=== PATIENT | male | born 1960 | race Caucasian/White ===

== ENCOUNTER → 2019-09-30 08:27 | Outpatient (BNVA) | payer MEDICARE, SELFPAY | PROVIDERS: Family Provider Nurse Practitioner Family; PCP Nurse Practitioner Family; Visit Provider Psychiatry & Neurology Psychiatry | DX: F33.42 Major depressive disorder, recurrent, in full remission (principal); F41.1 Generalized anxiety disorder; F17.210 Nicotine dependence, cigarettes, uncomplicated | CPT/HCPCS: 99213 ==

== ENCOUNTER → 2020-01-21 07:38 | Outpatient (BNVA) | payer MEDICARE, SELFPAY | PROVIDERS: Family Provider Nurse Practitioner Family; PCP Nurse Practitioner Family; Visit Provider Psychiatry & Neurology Psychiatry | DX: F33.42 Major depressive disorder, recurrent, in full remission (principal); F41.1 Generalized anxiety disorder; F17.210 Nicotine dependence, cigarettes, uncomplicated; F90.2 Attention-deficit hyperactivity disorder, combined type | CPT/HCPCS: 99214 ==

== ENCOUNTER → 2020-07-05 07:27 | Outpatient (BNVA) | payer MEDICARE, SELFPAY | PROVIDERS: Family Provider Nurse Practitioner Family; PCP Nurse Practitioner Family; Visit Provider Psychiatry & Neurology Psychiatry | DX: F33.42 Major depressive disorder, recurrent, in full remission (principal); F41.1 Generalized anxiety disorder; F17.210 Nicotine dependence, cigarettes, uncomplicated | CPT/HCPCS: 99214 ==

== ENCOUNTER 2020-07-18 13:44 | Outpatient (CLI) | payer MEDICARE, SELFPAY ==
--- NOTE | 2020-07-18 14:00 | CT_ITS ---
WS: [id number] CT ANGIOGRAPHY abdomen and pelvis, with and without contrast. HISTORY: I71.4 - Abdominal aortic aneurysm, without rupture TECHNIQUE: Noncontrast exam first performed. CT angiogram is performed during IV injection. Reformati on images reviewed. All CT scans at [facility] use at least one of these dose optimization techniques: automated exposure control; mA and/or kV adjustment per patient size (includes targeted exams where dose is matched to clinical indication); or iterative reconstruction. CONTRAST: Omnipaque 350; 95 mL IV. DLP: 2575.95 mGycm COMPARISON: 06/07/2019 Minimal scarring or chronic atelectasis at the RIGHT lung base with no interval change. Normal size h eart. Small hiatal hernia. Abdominal aorta: Patient is status post endovascular graft repair of a large abdominal aortic aneurys m. Graft extends into the iliac arteries bilaterally. Maximum diameter of the [place] aneurysm is 5.1 cm. Central lumen of the endovascular graft is patent. There is calcification and increased density w ithin the extra graft thrombus but there is no endovascular leak. Similar findings were seen on the p recontrast examination. Iliac arteries are both patent. There is moderate amount of calcification wit hin the iliac arteries. Calcified plaque at the origins of the SMA and celiac axis. No stenosis. Accessory renal artery on th e RIGHT. There are a few small hypodensities within the liver which are too small to characterize. No bile amina t dilatation. Gallbladder and spleen are negative. Pancreas and adrenal glands are normal. Bilateral renal cysts. No solid mass or obstruction. No ascites or adenopathy. No GI tract obstruction. There a re numerous diverticula in the descending and sigmoid colon without acute inflammation. The appendix is normal. Negative urinary bladder. L5 anterolisthesis by 5 mm due to bilateral pars defects. RIGHT convex curvature lumbar spine. CT/CT angio abdomen pelvis 96267 IMPRESSION: 1. Status post endovascular graft repair of a large abdominal aortic aneurysm. Graft extends into the iliac arteries bilaterally. Stable with no endovascular leak. 2. No increase in size of the tonto apache aortic aneurysm since 06/07/2019. 3. Bilateral renal cysts. 4. No periaortic hematoma.
[2020-07-18] MEDS: iohexol 350 mg/mL 100 mL Btl IV (14:13)
== END 2020-07-18 13:45 | disposition home or self-care (01) ==
PROVIDERS: PCP Nurse Practitioner Family; Visit Provider Thoracic Surgery (Cardiothoracic Vascular Surgery)
DX: I71.4 Abdominal aortic aneurysm, without rupture (principal); N28.1 Cyst of kidney, acquired
CPT/HCPCS: 74174; Q9967

== ENCOUNTER → 2020-08-30 08:00 | Outpatient (BNVA) | payer MEDICARE, SELFPAY | PROVIDERS: PCP Nurse Practitioner Family; Visit Provider Psychiatry & Neurology Psychiatry | DX: F41.1 Generalized anxiety disorder (principal); F17.210 Nicotine dependence, cigarettes, uncomplicated; F33.42 Major depressive disorder, recurrent, in full remission | CPT/HCPCS: 99214 ==

== ENCOUNTER → 2020-09-29 07:54 | Outpatient (BNVA) | payer MEDICARE, SELFPAY | PROVIDERS: PCP Nurse Practitioner Family; Visit Provider Psychiatry & Neurology Psychiatry | DX: F33.42 Major depressive disorder, recurrent, in full remission (principal); F41.1 Generalized anxiety disorder; F17.210 Nicotine dependence, cigarettes, uncomplicated | CPT/HCPCS: 99214 ==

== ENCOUNTER → 2020-11-13 13:48 | Outpatient (BNVA) | payer MEDICARE, SELFPAY | PROVIDERS: PCP Nurse Practitioner Family; Visit Provider Nurse Practitioner Family | DX: R10.9 Unspecified abdominal pain (principal); H60.93 Unspecified otitis externa, bilateral; Z79.899 Other long term (current) drug therapy; R05 Cough; Z13.6 Encounter for screening for cardiovascular disorders; E55.9 Vitamin D deficiency, unspecified | CPT/HCPCS: 71046; 74018; 80053; 80061; 81003; 82150; 82306; 82607; 82728; 82746; 83036; 83550; 83690; 84443; 85025; G0103 ==

== ENCOUNTER → 2020-12-15 08:33 | Outpatient (BNVA) | payer MEDICARE, SELFPAY | PROVIDERS: PCP Nurse Practitioner Family; Referring Provider Nurse Practitioner Family; Visit Provider Urology | DX: R97.20 Elevated prostate specific antigen [PSA] (principal) | CPT/HCPCS: 81003; 84153 ==

== ENCOUNTER → 2021-01-05 11:16 | Outpatient (BNVA) | payer MEDICARE, SELFPAY | PROVIDERS: PCP Nurse Practitioner Family; Visit Provider Urology | DX: R97.20 Elevated prostate specific antigen [PSA] (principal) | CPT/HCPCS: 88305 ==

== ENCOUNTER 2021-01-30 07:50 | Outpatient (CLI) | payer MEDICARE, SELFPAY ==
--- NOTE | 2021-01-30 13:17 | N.ONRAD NP_ITS ---
Radiation Oncology New Patient Visit Patient: Art Atkins MR#: [id number] : 1960> Age: 60> Sex: Male> Dictated by: Dr. Bertrand Brar Date of Service: 01/30/2021 Referring Physician(s) : Yanni Nolan Diagnosis: Prostate, adenocarcinoma, stage [id number], Rober 3+4 = 7 (grade group 2), risk group: unfavorable intermediate Radiotherapy to date: Summary > No prior radiation therapy. Chief Complaint / History of Present Illness: Mr. Atkins is a 60-year-old man who while being evaluated for an unrelated complaint had a PSA obtained. The PSA returned 7.18. A repeat value was 6.3. His rectal exam revealed a right prostate nodule. He was basically asymptomatic. Because of the nodule in the prostate and elevated PSA, Mr. Atkins was referred to Dr. Nazario. A 12 sample prostate biopsy was obtained 01-05-21. From the right lobe 3 of 6 cores from the midgland and the base contained Rober 3+3 =6 carcinoma. 10 to 30% of these biopsy cores was involved by carcinoma. No perineural invasion was seen. On the left 2 of 6 cores from the left base area contained a Rober 3+4 equal 7 carcinoma with 40% of 1 core and 60% of another core being involved. No perineural invasion was seen. Mr. Atkins has no significant urinary tract symptoms. He has very slight frequency and occasionally has a weak stream. He has nocturia x2. His total prostate symptom score is only 5. In terms of quality of life, he marked that he is pleased with his current urinary habits. Dr. Nazario has discussed surgical and radiation options with Mr. Atkins. Mr. Atkins leans toward radiation. He is referred for evaluation. Current Medications: Medications on 01/23/2021: Vitamin D3, Celexa, Valium, hydrocodone-acetaminophen, levofloxacin, and trazodone. Allergies: No Known Allergies Medical History: - Anemia, - depression, - history of alcohol abuse, - vitamin D deficiency. No history of collagen vascular disease. No previous radiation therapy. Surgical History: Colonoscopy, endovascular stent for abdominal aortic aneurysm, history of shoulder surgery. Family History: Father is at age 80. Mother is at age 83. Social History: Last screened on 01/30/2021 - Current every day smoker 2.0 packs/day for 45 years (90 pack years). Last screened on 01/30/2021 - Past drinker. Patient indicated use of the following products: cigarettes. Current Complaints / Review of Systems: . No new bone or joint pain. No dysuria, hematuria, pyuria. No change in bowel habits. He has noticed an external hemorrhoid the last several days. The hemorrhoid is painful. Vital Signs: Performed on 01/30/2021 8:35 AM BMI - 23.096 kg/m2 (high), Height - 69.00 in, Weight - 156.4 lbs, Temperature - 97.4 f, Pulse - 62, Respiration - 20, O2 Sat - 95 % (low), Pain - 0 and BP - 105/ 70 mm(hg). Physical Exam: Alert, oriented, no acute distress. No cervical or supraclavicular lymphadenopathy. Lungs clear to percussion. On auscultation no rales rhonchi or wheezes. Heart rhythm regular. No murmur or gallop. Abdomen: no distention. No organomegaly or mass or tenderness. He has a small right inguinal hernia. No hernia on the left. Musculoskeletal: Normal gait without assistance. No bone tenderness. Rectal: In the right perianal area he has a thrombosed hemorrhoid that is slightly over a centimeter in size. It is tender but not excessively so. Rectal exam reveals good rectal tone. No rectal mass noted. The prostate is small. On the left there is very slight induration in the midportion of the lobe. On the right in the lateral aspect of the midlobe extending both into the base and toward the apex, there is about a 1 cm firm nodule. I cannot detect any induration extending into the lateral sulcus. Performance Status: 1 - No physically strenuous activity, but ambulatory and able to carry out light or sedentary work (e.g. office work, light house work). (ECOG) Pathology: #1 prostate, right lateral mid, [place] 3+3 = 6 with 10% of core biopsy involved. #2 prostate, right lateral base, Rober score 3+3 =6 with 30% of the core biopsy involved. #3 prostate, right base, [place] score 3+3 = 6 involving 20% of the core. #4 prostate left lateral lateral base Rober score 3+4 = 7 with 60% of the core involved. #5 prostate, left base, Blodgett score 3+4 = 7 with 40% of the core involved. Lab: PSA equals 7.18; repeat PSA 6.3 Imaging: See HPI Impression: Mr. Atkins is a 60-year-old healthy gentleman who has recently been found to have carcinoma the prostate. His grade group is 2 based on 2 biopsies having a Rober score of 3+4 = 7 and his stage is T2c based on having palpable disease and both lobes of the prostate involved. These factors put him in the unfavorable intermediate risk group. NCCN guidelines for the unfavorable intermediate group recommend AD T+ radiation. No imaging is required. Treatment of pelvic nodes can be considered if there are factors which suggest a high risk of involvement. The [facility] nomogram suggests an approximately 8% risk of lymph node involvement and an approximately 6% risk of seminal vesicle invasion. I discussed with Mr. Atkins that I recommend that he proceed with ADT follow-up by the initiation of radiation 4 to 6 weeks after his first shot. I discussed the rationale for this treatment. I reviewed a typical course of radiation, side effects, and possible complications. I discussed that the risk of severe bowel or bladder injury is small but the risk of impotence is extremely high, virtually 100% at least temporarily. Mr. Atkins ask about brachytherapy. The small size of his gland and the Rober 3+4 = 7 component of his cancer make him a marginal candidate for brachytherapy only. I offered him referral to [facility] to discussed brachytherapy but he declined. He has expressed a desire to proceed with hormonal therapy and radiation. I recommended sitz bath in warm water for the thrombosed hemorrhoid. I recommended that he see his primary care physician if the problem does not resolve in the next 7 to 10 days. Plan: Referred to Dr. Nolan for the initiation of hormonal therapy. I discussed the case personally with Dr. Nolan. Simulation will be planned about 3 weeks after hormonal therapy is initiated. Signed by: 01/30/2021 1:15:17 PM <<Signature on File>> Time spent with patient: CPT Code: CPT Code:
== END 2021-01-30 07:51 | disposition home or self-care (01) ==
LOC: ONCMED 07:54
PROVIDERS: PCP Nurse Practitioner Family; Visit Provider Specialist
DX: C61 Malignant neoplasm of prostate (principal); R97.20 Elevated prostate specific antigen [PSA]; R35.0 Frequency of micturition; R32 Unspecified urinary incontinence; R35.1 Nocturia; Z79.899 Other long term (current) drug therapy
CPT/HCPCS: 99205

== ENCOUNTER 2021-02-14 10:55 | Outpatient (CLI) | payer MEDICARE, SELFPAY ==
--- NOTE | 2021-02-14 11:21 | ONCRAD EPV_ITS ---
Radiation Oncology Follow-Up Note Patient Name: Art Atkins Date of : 1960 Date of Service: 02/14/2021 Attending Physician: Adriano Vang M.D. Art Atkins returned to my office this morning for a routinely scheduled follow-up appointment. He was evaluated for the management of his clinical stage IIB (T1cN0) adenocarcinoma of the prostate by a [facility] physician in January. During his urologic examination, a right inguinal hernia was identified. I will request a surgical consult prior to initiating radiotherapy on account of the significant risk to herniated bowel during treatment. The patient has verbalized understanding and his medical treatment was discussed with his urologist and the consulting surgeon. Signed by: Dr. Adriano Vang 02/14/2021 11:20:29 AM
== END 2021-02-14 10:56 | disposition home or self-care (01) ==
LOC: ONCMED 10:58
PROVIDERS: PCP Nurse Practitioner Family; Visit Provider Radiology Radiation Oncology
DX: C61 Malignant neoplasm of prostate (principal); K40.90 Unilateral inguinal hernia, without obstruction or gangrene, not specified as recurrent; Z79.899 Other long term (current) drug therapy
CPT/HCPCS: 99024

== ENCOUNTER → 2021-02-16 09:44 | Outpatient (BNVA) | payer MEDICARE, SELFPAY | PROVIDERS: PCP Nurse Practitioner Family; Visit Provider Surgery | DX: Z20.822 Contact with and (suspected) exposure to COVID-19 (principal); K40.90 Unilateral inguinal hernia, without obstruction or gangrene, not specified as recurrent; Z11.52 Encounter for screening for COVID-19 | CPT/HCPCS: 87635 ==

== ENCOUNTER 2021-02-21 07:19 | Day surgery (SDC) | payer MEDICARE, SELFPAY ==
[2021-02-20 09:20] VITALS: BMI 22.6
[2021-02-21] VITALS (10 sets, daily range): BP systolic 103–142; BP diastolic 71–94; PULSE 55–90; RESP 14–20; TEMP 36.2–36.9; O2SAT 95–99
[2021-02-21] MEDS: sodium chloride 0.9% 1,000 ML 30 ML IV (08:30)
--- NOTE | 2021-02-21 08:41 | ANES.PREANE2 ---
Pre-Anesthetic Assessment Pre-Anesthetic Assessment: Height/Weight: Height 1.75 m Weight 69.4 kg Temp Pulse Resp BP Pulse Ox 97.6 F 59 L 18 103/72 95 02/21/21 07:35 02/21/21 07:35 02/21/21 07:35 02/21/21 07:35 02/21/21 07:35 Preop Diagnosis: Right inguinal hernia Proposed Procedure: Operation Date: 02/21/21 09:00 Proposed Procedures p Laparoscopic Inguinal Hernia Repair w/Mesh 19401 k40.90(Right) - Kevin Mccarty MD Familial anesthetic complications: None Was Beta Pramod taken within 24 hours: N/A Was Clonidine taken within 24 hours: N/A Last intake: Intake Last Liquid Date 02/20/21 Last Liquid Time 22:00 Last Solid Date 02/20/21 Last Solid Time 19:00 Social: Social History: Tobacco and No alcohol Comment: former ETOH and cocaine use Exam: Pre-Anes Outpt Exam: alert, oriented x 3, clear to auscultation bilaterally and regular rate & rhythm Airway: Cervical ROM: WNL MP: 2 Dentition: Other (only 9 teeth) CV/HEM: CV/HEM: Anemia Comments: AAA stent in 2019 Anesthetic Plan: ASA status: 2 Anesthesia: General Risk of > 500 ml blood loss (7ml/kg in children): No Meds/Allergies Current Medications: Current Medications Generic Name Dose Route Start Last Admin Trade Name Freq PRN Reason Stop Dose Admin Sodium Chloride 1,000 mls @ 30 ml s/hr 02/21/21 07:45 02/21/21 08:30 Sodium Chloride 0.9% IV 02/22/21 07:44 30 mls/hr .Q24H YOANDY Administration PFSH Anesthesia PFSH: Medical History (Updated 02/16/21 @ 16:55 by Kevin Mccarty MD) Alcohol dependence, in remission Anemia Bilateral otitis externa Cocaine dependence, in remission Depression, major, recurrent, in complete remission Generalized anxiety disorder Vitamin D deficiency Surgical History (Updated 02/16/21 @ 10:19 by Kevin Mccarty MD) History of colonoscopy 2019 History of endovascular stent graft for abdominal aortic aneurysm (AAA) History of shoulder surgery History of spinal surgery Family History Father , at age 80 Unknown family medical history Mother , at age 83 Dementia Denies family history of Diabetes CAD (coronary artery disease) Cancer Social History Alcohol intake: former Year of sobriety/quit date alcohol: 2009 Marital status: Current occupational status: disabled History of recent travel: No Data Anesthesia Cardiac Studies: No Data to Display
--- NOTE | 2021-02-21 08:52 | W.PM.OPSUD ---
Surgery/Procedure H&P Update DATE OF PROCEDURE: February 21, 2021 DATE H&P PERFORMED: 02/16/21 H&P UPDATE INFORMATION: I have reviewed H&P completed within last 30 days, I have examined patient prior to procedure and No changes to prior documentation PREOP DIAGNOSIS: Right inguinal hernia PLANNED PROCEDURE: Operation Date: 02/21/21 09:00 Proposed Procedures p Laparoscopic Inguinal Hernia Repair w/Mesh 75121 k40.90(Right) - Kevin Mccarty MD
--- NOTE | 2021-02-21 10:45 | PM.OP ---
Operative Report Date of procedure: February 21, 2021 Pre-op Diagnosis: Right inguinal hernia Post-op Diagnosis: Right reducible direct inguinal hernia Lipoma of the spermatic cord Procedure Done: Laparoscopic total extraperitoneal repair of right reducible direct inguinal hernia with Surgimax 3D mesh 15 x 10cm Excision of lipoma of the spermatic cord Pathology: none sent Surgeon: Kevin Mccarty Anesthesia: General Condition: stable Disposition: PACU Procedure: The patient was taken to the operating room. After IV antibiotic was administered, the abdomen was prepped and draped in a sterile manner. Using a 15 blade, a 1.0 cm transverse incision was made infraumbilically on the () side. Subcutaneous tissue was divided using electrocautery and the anterior rectus sheath divided using an 11 blade. The rectus muscle was retracted laterally and the extraperitoneal space identified. A 11 mm port was placed and 12 mm of pneumoperitoneum was created. A 10 mm 30? scope was introduced and the retrorectus space was opened using the camera up to the pubic symphysis and 5 mm ports were placed in the midline, one 2-fingerbreadths above the pubic symphysis and the other midway between these two ports under direct visualization. Blunt dissection was carried out to open up the tissue in the midline and to the pubic symphysis, which was identified. The dissection was then carried laterally where the iliopubic tract was identified. There was no femoral or obturator hernia and there was a direct hernia which was reduced. The inferior epigastric artery was identified and dissection was carried posterior to it and laterally, the space was opened up to the level of the umbilicus superior to the anterior superior iliac spine. I then proceeded to dissect out the spermatic cord and there was no indirect hernia noted. 15 x 10cm Surgimax mesh was rolled and introduced through the 10 mm port and rolled laterally and apposed well against the abdominal wall to cover the myopectineal orifice completely. There was a small tear in the peritoneum resulting in pneumoperitoneum which was decompressed using a Verres needle introduced through the right upper quadrant. 10 Cc of 0.5% Marcaine was infiltrated into the preperitoneal space. The extraperitoneal space was desufflated under direct visualization to ensure no slippage of hernial sac under the mesh. All ports were removed, the anterior rectus fascia at the infraumbilical port closed using figure of eight 0 Vicryl sutures, subcutaneous tissue approximated using 3-0 Vicryl sutures and skin at all three port sites were closed using running subcuticular 4-0 Monocryl sutures and Dermabond. 10 mL of 0.5% Marcaine was infiltrated at the port sites. The patient was stable throughout the procedure.
[2021-02-21] MEDS: fentaNYL 50 mcg/mL INJ 2mL IVP (11:17)
[2021-02-21] MEDS: ondansetron 2 mg/ML SDV 2 mL 4 MG IVP (11:45)
--- NOTE | 2021-02-21 11:49 | SUR.PHASEII ---
MEDICATED FOR NAUSEA.MINIMAL RELIEF OF ABDOMEN PAIN. INCISION SITE EVALUATED. NO BLEEDING OR DRAINAGE NOTED.
--- NOTE | 2021-02-21 13:42 | ANE.PACU2 ---
Inpatient post-anesthesia follow up: Airway intact: Yes Vital signs: Temperature 97.7 F Pulse Rate 60 Respiratory Rate 18 Blood Pressure 108/71 Pulse Oximetry 95 Oxygen Delivery Me thod Room Air Oxygen Flow Rate 7 Fraction of Inspir ed Oxygen Hydration adequate: Yes Nausea and vomiting: No Pain level: 2 Mental status: Baseline
== END 2021-02-21 12:30 | disposition home or self-care (01) ==
PROVIDERS: PCP Nurse Practitioner Family; Visit Provider Surgery
PROC: (CPT 49650; principal; 2021-02-21 09:00)
DX: K40.90 Unilateral inguinal hernia, without obstruction or gangrene, not specified as recurrent (principal); D17.6 Benign lipomatous neoplasm of spermatic cord; Z95.5 Presence of coronary angioplasty implant and graft; E55.9 Vitamin D deficiency, unspecified; F14.21 Cocaine dependence, in remission
CPT/HCPCS: 49650; 96374; C1781; J0690; J2405; J2704; J2710; J3010; J3490; J7030

== ENCOUNTER 2021-04-05 06:34 | Outpatient (RCR) | payer MEDICARE, SELFPAY ==
--- NOTE | 2021-03-08 | CT_ITS ---
Radiation Therapy Planning CT images; total exam DLP: 512.33 mGy-cm MTDD
--- NOTE | 2021-03-08 15:56 | ONCRAD EPV_ITS ---
Radiation Oncology Established Patient Visit Patient: Wilbert Cordova [id number] : 1960> Age: 60> Sex: Male> Dictated by: Dr. Bertrand Brar Date of Service: 03/08/2021 Referring Physician(s) : Yanni Nolan Diagnosis: Prostate, adenocarcinoma, stage [id number], [place] 3+4 equal 7, unfavorable intermediate risk group Radiotherapy to Date: None. Current History: Mr. Atkins returns following his hernia repair. The surgery went well. Mr. Atkins feels well and has been released for radiation. He has no urinary tract complaints. He has no questions about the planned treatment. Current Medications: Aspirin, cholecalciferol, citalopram Hydrobromide, traZODone HCl. Allergies: No Known Allergies Current Complaints / Review of Systems: . Vital Signs: Performed on 03/08/2021 2:21 PM BMI - 22.86 kg/m2, Height - 69.00 in, Weight - 154.8 lbs, Temperature - 97.4 f, Pulse - 64 /min, Respiration - 18 /min, O2 Sat - 98 %, Pain - 0 and BP - 120/ 87 mm(hg). Physical Exam: General: Alert and oriented x 3. No acute disrees. Performance Status: 1 - No physically strenuous activity, but ambulatory and able to carry out light or sedentary work (e.g. office work, light house work). (ECOG) Lab: None pending. Pathology: Imaging: None. Impression: We discussed the planned course of treatment. I discussed the acute effects that often occur. I reviewed the small risk of bowel or bladder injury that could require surgery for repair or a permanent ostomy if repair is not possible. Mr. Atkins understands that a complication of this nature is rare but still within the realm of possibility. He wishes to proceed with treatment. Simulation performed. Signed by: 03/08/2021 3:55:18 PM <<Signature on File>> Time spent with patient: CPT Code: CPT Code:
--- NOTE | 2021-03-20 15:08 | ONCRAD TMN_ITS ---
Radiation Oncology Treatment Management Note Patient Name: Art Atkins Date of : 1960 Date of Service: 03/20/2021 Attending Physician: Adriano Vang M.D. Art Atkins is a 60 year old white male diagnosed with a clinical stage IIB (T1cN0) favorable, intermediate-risk prostate cancer. He initially was identified to have an elevated PSA level (7.2 ng/mL) A transrectal ultrasound-guided biopsy of the prostate gland diagnosed an adenocarcinoma with a Rober score of 3+4 (grade group 2) involving 40% and 60% of two cores submitted from the left base. The patient has received 6 Gy of a prescribed 60 Gallagher to the prostate and seminal vesicles with an intensity modulated radiotherapy plan utilizing a step and shoot treatment technique. Upon review of systems, he denied any gastrointestinal or genitourinary complaints related to radiotherapy. On physical examination, the patient weighed 155 lbs. His temperature was 97.4 ???F with a blood pressure of 120/87 mmHg. The pulse was 64 bpm and his respiratory rate was 18. There was no erythema within the treatment perez. Continue hypofractionated prostate radiotherapy as prescribed. Signed by: Dr. Adriano Vang 03/27/2021 2:40:58 PM
--- NOTE | 2021-03-28 08:40 | ONCRAD TMN_ITS ---
Radiation Oncology Treatment Management Note Patient Name: Art Atkins Date of : 1960 Date of Service: 03/27/2021 Attending Physician: Adriano Vang M.D. Art Atkins is a 60 year old white male diagnosed with a clinical stage IIB (T1cN0) favorable, intermediate-risk prostate cancer. He initially was identified to have an elevated PSA level (7.2 ng/mL) A transrectal ultrasound-guided biopsy of the prostate gland diagnosed an adenocarcinoma with a Rober score of 3+4 (grade group 2) involving 40% and 60% of two cores submitted from the left base. The patient has received 21 Gy of a prescribed 60 Gallagher to the prostate and seminal vesicles with an intensity modulated radiotherapy plan utilizing a step and shoot treatment technique. Upon review of systems, he denied any gastrointestinal or genitourinary complaints related to radiotherapy. On physical examination, the patient weighed 155 lbs. His temperature was 97.2 ???F with a blood pressure of 128/86 mmHg. The pulse was 60 bpm and his respiratory rate was 18. There was no erythema within the treatment perez. Continue hypofractionated prostate radiotherapy as planned. Signed by: Dr. Adriano Vang 03/28/2021 8:39:11 AM
--- NOTE | 2021-04-03 15:19 | ONCRAD TMN_ITS ---
Radiation Oncology Treatment Management Note Patient Name: Art Atkins Date of : 1960 Date of Service: 04/03/2021 Attending Physician: Adriano Vang M.D. Art Atkins is a 60 year old white male diagnosed with a clinical stage IIB (T1cN0) favorable, intermediate-risk prostate cancer. He initially was identified to have an elevated PSA level (7.2 ng/mL) A transrectal ultrasound-guided biopsy of the prostate gland diagnosed an adenocarcinoma with a Rober score of 3+4 (grade group 2) involving 40% and 60% of two cores submitted from the left base. The patient has received 36 Gy of a prescribed 60 Gallagher to the prostate and seminal vesicles with an intensity modulated radiotherapy plan utilizing a step and shoot treatment technique. Upon review of systems, he denied any gastrointestinal or genitourinary complaints related to radiotherapy. On physical examination, the patient weighed 154 lbs. His temperature was 97.6 ???F with a blood pressure of 114/77 mmHg. The pulse was 64 bpm and his respiratory rate was 18. There was no erythema within the treatment perez. Continue hypofractionated prostate radiotherapy as prescribed. Signed by: Dr. Adriano Vang 04/03/2021 3:17:17 PM
== END 2021-04-05 23:59 | disposition home or self-care (01) ==
LOC: ONCMED 06:34
PROVIDERS: PCP Nurse Practitioner Family; Visit Provider Radiology Radiation Oncology
DX: Z51.0 Encounter for antineoplastic radiation therapy (principal); C61 Malignant neoplasm of prostate; R97.20 Elevated prostate specific antigen [PSA]; Z79.899 Other long term (current) drug therapy
CPT/HCPCS: 77300; 77301; 77334; 77336; 77338; 77385; 99215

== ENCOUNTER 2021-04-13 06:27 | Outpatient (RCR) | payer MEDICARE, SELFPAY ==
--- NOTE | 2021-04-10 14:59 | ONCRAD TMN_ITS ---
Radiation Oncology Treatment Management Note Patient Name: Art Atkins Date of : 1960 Date of Service: 04/10/2021 Attending Physician: Adriano Vang M.D. Art Atkins is a 60 year old white male diagnosed with a clinical stage IIB (T1cN0) favorable, intermediate-risk prostate cancer. He initially was identified to have an elevated PSA level (7.2 ng/mL) A transrectal ultrasound-guided biopsy of the prostate gland diagnosed an adenocarcinoma with a Rober score of 3+4 (grade group 2) involving 40% and 60% of two cores submitted from the left base. The patient has received 51 Gy of a prescribed 60 Gallagher to the prostate and seminal vesicles with an intensity modulated radiotherapy plan utilizing a step and shoot treatment technique. Upon review of systems, he dyschezia and one episode of stool incontinence. On physical examination, the patient weighed 153 lbs. His temperature was 97.9 ???F with a blood pressure of 123/72 mmHg. The pulse was 72 bpm and his respiratory rate was 18. There was no erythema within the treatment perez. Continue hypofractionated prostate radiotherapy as planned. Signed by: Dr. Adriano Vang 04/10/2021 3:19:03 PM
--- NOTE | 2021-04-13 10:34 | N.ONRD TS_ITS ---
Radiation OncologyTreatment Summary Patient Name: Art Atkins Date of : 1960 Date of Service: 04/13/2021 Attending Physician: Adriano Vang M.D. Art Atkins has completed prostate radiotherapy for the management of a clinical stage IIB (T1cN0) favorable, intermediate-risk prostate cancer. He initially was identified to have an elevated PSA level (7.2 ng/mL) A transrectal ultrasound-guided biopsy of the prostate gland diagnosed an adenocarcinoma with a Rober score of 3+4 (grade group 2) involving 40% and 60% of two cores submitted from the left base. Daily radiotherapy was administered between the dates of March 19, 2021 through April 13, 2021. A prescribed dose of 60 Gy was delivered in 20 fractions encompassing 26 elapsed days. The prostate gland and proximal seminal vesicles were treated utilizing an IMRT plan using a step and shoot treatment technique. The plan arranged seven gantry angles (5???, 40???, 100???, 135???, 235???, 295???, and 330???) replicating an arc. The collimator rotation was 0???. The field sizes measured between 7.7 cm x 10.3 cm to 10.2 cm x 7.8 cm. The SSDs measured a minimum of 83.9 cm to a maximum of 90 cm. The ports delivered 252 MU, 246 MU, 203 MU, 163 MU, 130 MU, 190 MU, and 241 MU corresponding to the gantry angles described. All treatments were performed on the trustedsafe linear accelerator with an isocentric technique. The dose was calculated by Anisotropic Analytic Algorithm. A photon energy of 6 MV was prescribed. The plan was normalized to deliver 100% of the prescription dose to 95% of the planning target volume. Signed by: Dr. Adriano Vang 04/13/2021 10:33:25 AM
== END 2021-05-06 23:59 | disposition home or self-care (01) ==
LOC: ONCMED 06:27
PROVIDERS: PCP Nurse Practitioner Family; Visit Provider Radiology Radiation Oncology
DX: Z51.0 Encounter for antineoplastic radiation therapy (principal); C61 Malignant neoplasm of prostate
CPT/HCPCS: 77014; 77336; 77385; 77427

== ENCOUNTER → 2021-05-16 00:01 | Outpatient (BNVA) | payer MEDICARE, SELFPAY | PROVIDERS: PCP Nurse Practitioner Family; Visit Provider Radiology Radiation Oncology | DX: C61 Malignant neoplasm of prostate (principal); N40.2 Nodular prostate without lower urinary tract symptoms | CPT/HCPCS: 84153 ==

== ENCOUNTER 2021-05-18 06:34 | Outpatient (RCR) | payer MEDICARE, SELFPAY ==
--- NOTE | 2021-05-18 11:22 | ONCRAD EPV_ITS ---
Radiation Oncology Follow-Up Note Patient Name: Art Atkins Date of : 1960 Date of Service: 05/18/2021 Attending Physician: Adriano Vang M.D. Art Atkins returned to my office this morning for a routinely scheduled follow-up appointment. He completed prostate radiotherapy in April for the management of a clinical stage IIB (T1cN0) favorable, intermediate-risk prostate cancer. He initially was identified to have an elevated PSA level (7.2 ng/mL) A transrectal ultrasound-guided biopsy of the prostate gland diagnosed an adenocarcinoma with a [place] score of 3+4 (grade group 2) involving 40% and 60% of two cores submitted from the left base. Daily radiotherapy was administered between the dates of March 19, 2021 through April 13, 2021. A prescribed dose of 60 Gy was delivered in 20 fractions encompassing 26 elapsed days. On review of systems, he does not describe any lower urinary tract symptoms. On physical examination, the patient weighed 152 pounds. The temperature is 97.3 ???F. His blood pressure was 111/72 mmHg. The pulse was 68 bpm and his respiratory rate was 18 breaths per minute. Rectal exam was deferred. In summary, Mr. Adrian returned for a routine follow-up appointment. A PSA obtained in prior to this appointment was 2 ng/mL. He will continue surveillance with his urologist as scheduled. Signed by: Dr. Adriano Vang 05/18/2021 11:21:46 AM
== END 2021-06-05 23:59 | disposition home or self-care (01) ==
LOC: ONCMED 06:34
PROVIDERS: PCP Nurse Practitioner Family; Visit Provider Radiology Radiation Oncology
DX: C61 Malignant neoplasm of prostate (principal); R97.20 Elevated prostate specific antigen [PSA]; Z92.3 Personal history of irradiation
CPT/HCPCS: 99024

== ENCOUNTER → 2021-06-21 07:20 | Outpatient (BNVA) | payer MEDICARE, SELFPAY | PROVIDERS: PCP Nurse Practitioner Family; Visit Provider Psychiatry & Neurology Psychiatry | DX: F33.42 Major depressive disorder, recurrent, in full remission (principal); F41.1 Generalized anxiety disorder; F17.210 Nicotine dependence, cigarettes, uncomplicated | CPT/HCPCS: 99214 ==

== ENCOUNTER → 2021-07-09 15:43 | Outpatient (BNVA) | payer MEDICARE, SELFPAY | PROVIDERS: PCP Nurse Practitioner Family; Visit Provider Urology | DX: C61 Malignant neoplasm of prostate (principal) | CPT/HCPCS: 81003; 84153 ==

== ENCOUNTER → 2021-10-03 07:37 | Outpatient (BNVA) | payer MEDICARE, SELFPAY | PROVIDERS: PCP Nurse Practitioner Family; Visit Provider Psychiatry & Neurology Psychiatry | DX: F33.42 Major depressive disorder, recurrent, in full remission (principal); F41.1 Generalized anxiety disorder; F17.210 Nicotine dependence, cigarettes, uncomplicated | CPT/HCPCS: 99213 ==

== ENCOUNTER → 2022-01-03 13:45 | Outpatient (BNVA) | payer MEDICARE, SELFPAY | PROVIDERS: PCP Nurse Practitioner Family; Visit Provider Psychiatry & Neurology Psychiatry | DX: F33.42 Major depressive disorder, recurrent, in full remission (principal); F41.1 Generalized anxiety disorder; F17.210 Nicotine dependence, cigarettes, uncomplicated | CPT/HCPCS: 99213 ==

== ENCOUNTER 2022-10-07 13:26 | Outpatient (CLI) | payer MEDICARE, SELFPAY ==
--- NOTE | 2022-10-07 13:30 | USCV_ITS ---
Wilbert Art Age: 62 Gender: M : 1960 Exam Date: 10/07/2022 13:56 Ordering Phys: Jhon Zaidi MD (Andy) ([email or web address]) Technologist: Luis Daniel Dougherty Exam Location: [place] Indication: AAA HISTORY: Diameter (cm) AP x Transverse x Length Velocity (cm/s) Waveform Prox Aorta: 1.81 x 2.05 x 53.70 Mid Aorta: 2.48 x 2.95 x 41.00 Distal Aorta: 4.87 x 4.75 x 5.61 31.60 Right Iliac Prox: 1.43 x 1.97 x 38.70 Left Iliac Prox: 1.85 x 1.66 x 38.90 Stent Prox Landing x x Aneurysmal Sac Max x x Lt Lat Sac Dim Rt Lat Sac Dim Stent Dist Landing x x Right Iliac Stent x x Left Iliac Stent x x Right Renal Art Left Renal Art FINDINGS: Comparison: CTA 07/18/20 Status post endovascular repair abdominal aorta. Graft is patent, no increase in size of the [place] aneurysm. No evidence of periaortic fluid is detected. Graft in the proximal iliac arteries is patent . CONCLUSIONS Status post endovascular graft repair abdominal aorta, no increase in size of the nondalton aneurysm. Dr. Birgit Rick DO (Electronically Signed) Final Date: 07 October 2022 14:46 S
== END 2022-10-07 13:27 | disposition home or self-care (01) ==
PROVIDERS: Visit Provider Thoracic Surgery (Cardiothoracic Vascular Surgery)
DX: I71.40 Abdominal aortic aneurysm, without rupture, unspecified (principal)
CPT/HCPCS: 93978

== ENCOUNTER 2023-04-29 13:40 | Outpatient (CLI) | payer MEDICARE, SELFPAY ==
--- NOTE | 2023-04-29 14:00 | CT_ITS ---
WS: [id number] CT ANGIOGRAPHY abdomen and pelvis. HISTORY: AAA TECHNIQUE: Noncontrast CT angiogram first performed. CT angiogram is performed during IV injection. R eformation images reviewed. All CT scans at [facility] use at least one of these dose optimiza tion techniques: automated exposure control; mA and/or kV adjustment per patient size (includes targe emma exams where dose is matched to clinical indication); or iterative reconstruction. CONTRAST: Omnipaque 350; 100 mL IV. DLP: 844.09 mGy.cm COMPARISON: 07/18/2020 Hyperinflated lung bases with mild scarring and atelectasis. Small hiatal hernia. Heart is normal siz e. Abdominal aorta: Status post endovascular graft repair of an abdominal aortic aneurysm. [place] aneury sm is similar size to the prior study with a maximal AP diameter of 5.0 cm. Increased density present within the thrombus surrounding the graft is calcification and noted on the precontrast imaging. No endovascular leak is identified. No increase in the aortic aneurysm. Bilateral iliac artery stents ar e also patent. No adverse findings. No periaortic hematoma. Central lumen of the graft remains patent . There is a small amount of thrombus within the graft but similar to the prior study. SMA and celiac axis are patent with only a small amount of plaque present. Normal gallbladder. Normal early enhancement of the liver and spleen. Normal pancreas. No bile duct dilatation. Bilateral adren al thickening. Bilateral renal cysts. No solid mass within either kidney. No ascites or adenopathy. N o GI tract obstruction. Moderate diverticular burden in the distal colon. No acute diverticulitis and no obstruction. L5 anterolisthesis by 8 mm with bilateral L5 pars defects. Mild compression fracture s at L2 and L4. L2 compression fracture is new since 07/18/2020. IMPRESSION: 1. Stable endovascular graft repair of the abdominal aortic aneurysm. No endovascular leak and no par a-aortic hematoma. No increase in size of the [place] aneurysm. 2. Bilateral renal cysts. 3. Grade 1 spondylolisthesis of L5 with bilateral pars defects. 4. L2 and L4 compression fractures. L2 10% compression fracture is new since 2020.
[2023-04-29 14:09] LABS: Blood Urea Nitrogen 10 mg/dL (8-23); Glomerular Filtration Rate 61.8 mL/min (90-130)
[2023-04-29] MEDS: iohexol 350 mg/mL 500 mL Btl (per mL) IV (14:16)
== END 2023-04-29 13:41 | disposition home or self-care (01) ==
LOC: RAD 13:41
PROVIDERS: Visit Provider Thoracic Surgery (Cardiothoracic Vascular Surgery)
DX: I71.40 Abdominal aortic aneurysm, without rupture, unspecified (principal); Z98.890 Other specified postprocedural states
CPT/HCPCS: 74174; 82565; 84520; Q9967

== ENCOUNTER 2024-11-19 12:54 | Emergency (ER) | payer MEDICARE, SELFPAY ==
[2024-11-19 12:57] VITALS: BP 151/100; PULSE 101; RESP 16; TEMP 36.6; O2SAT 96; BMI 19.8
--- NOTE | 2024-11-19 13:19 | W.ED.PSYCHS ---
HPI - Psych General: Chief Complaint: Psychiatric Symptoms Stated Complaint: 96 HOUR HOLD Time Seen by Provider: 11/19/24 13:08 History of Present Illness: 62-year-old male presents emergency room on a 96-hour hold from local [place] . Patient was highly intoxicated yesterday state he had nothing to live for made statements about harming himself including jumping off of a bridge. Patient states he drank 1/5 of vodka yesterday he states he is sober now and he has no intention of harming himself he admits he did say these things are stable and he is drinking but he states he only usually says those sorts of things when he is drinking he has not previously been hospitalized for suicidal ideation. He does have a longstanding history of drinking problems he is lost his license and has been unable to get it reinstated. He is a former heavy drug user nothing recent. Related Data Home Medications ?Medication ?Instructions ?Recorded ?Confirmed aspirin 81 mg tablet,delayed 81 mg PO DAILY 02/20/21 11/19/24 release trazodone 100 mg tablet 200 mg PO BEDTIME 11/19/24 11/19/24 Previous Rx's ?Medication ?Instructions ?Recorded citalopram 20 mg tablet (Celexa) 20 mg PO DAILY #90 tabs 12/18/23 Allergies Allergy/AdvReac Type Severity Reaction Status Date / Time No Known Allergies Allergy Verified 12/18/23 12:45 Review of Systems Const: Denies: fever(s) or chills Card: Denies: chest pain Resp: Denies: dyspnea GI: Denies: abdominal pain : Denies: dysuria, urinary frequency or urinary urgency Musc: Denies: neck pain or back pain Skin/Breast: Denies: rash PFSH ED PFSH: Medical History Psychiatric care Anemia Vitamin D deficiency Bilateral otitis externa Alcohol dependence, in remission Cocaine dependence, in remission Generalized anxiety disorder Depression, major, recurrent, in complete remission Surgical History Status post right inguinal hernia repair (02/21/21) History of colonoscopy 2020 History of spinal surgery History of shoulder surgery History of endovascular stent graft for abdominal aortic aneurysm (AAA) Family History Father , at age 80 Unknown family medical history Mother , at age 83 Dementia Denies family history of Diabetes CAD (coronary artery disease) Cancer Social History Alcohol intake: former Year of sobriety/quit date alcohol: 2009 Substance/Drug Use: never Marital status: Current occupational status: disabled Physical Exam Const: COMMON NORMALS: no acute distress GENERAL APPEARANCE: cooperative and comfortable ORIENTATION/CONSCIOUSNESS: Yes awake, Yes oriented to person, Yes oriented to place and Yes oriented to time HENMT: COMMON NORMALS: normocephalic, atraumatic and hearing grossly normal bilaterally HEAD & SCALP: normocephalic and atraumatic Resp: COMMON NORMALS: normal respiratory effort, No retractions, No use of accessory muscles and clear to auscultation bilaterally AUSCULTATION: clear to auscultation bilaterally Cardio: COMMON NORMALS: regular rate, regular rhythm and No murmurs present (Cardio) RATE: regular rate RHYTHM: regular rhythm GI: COMMON NORMALS: Soft to palpation and No hepatosplenomegaly present AUSCULTATION: Yes normoactive bowel sounds PALPATION: Yes Soft to palpation, No Tenderness to palpation present (GI), No Guarding due to palpation present (GI) and Yes No hepatosplenomegaly present Extremity: COMMON NORMALS: normal to inspection, capillary refill normal, no clubbing, cyanosis or edema, no calf tenderness and no pedal edema Neuro: SENSORIUM/ORIENTATION: Yes oriented to person, Yes oriented to place and Yes oriented to time Skin: COMMON NORMALS: no rashes or lesions noted GENERAL SKIN EXAM: no rashes or lesions noted Course Vital Signs: Vital signs: Vital Signs Temperature 97.8 F 11/19/24 12:57 Pulse Rate 101 H 11/19/24 12:57 Respiratory Rate 16 11/19/24 12:57 Blood Pressure 151/100 11/19/24 12:57 Pulse Oximetry 96 11/19/24 12:57 Oxygen Delivery Me thod Room Air 11/19/24 12:57 MDM - Psych Medical Decision Making Patient awake alert and oriented denies any suicidal or homicidal ideation at this time is not under the influence at this time. Patient readily admits to having made suicidal comments yesterday he states he has thoughts about it especially when he is drunk. In course of discussion patient is worried about planning to get his license back to get his vehicle restarted he is anxious to make sure that he gets to court on Friday to start to clear these things up. Repeatedly denies any suicidal or homicidal ideation at this time. He admits he did say these things but says it was simply because he was under the influence of alcohol. They discussed Dr. Langley he did not feel the patient warranted inpatient care at this time. Patient has been going to Alcoholics Anonymous meetings encouraged him continue to go to try to achieve sobriety. Encouraged him to abstain from alcohol. Medical Records I reviewed the patient's medical records. Lab Data I reviewed the patient's lab results. 11/19/24 13:21 11/19/24 13:21 Laboratory Results WBC 6.68 10^3/uL (3.29-11.43) 11/19/24 13:21 RBC 4.19 10^6/uL (3.85-5.65) 11/19/24 13:21 Hgb 14.70 g/dL (11.27-16.99) 11/19/24 13:21 Hct 42.4 % (37-53) 11/19/24 13:21 MCV 101.2 fl (82-101) H 11/19/24 13:21 MCH 35.1 pg (27-33) H 11/19/24 13:21 MCHC 34.7 g/dL (30-55) 11/19/24 13:21 RDW 13.5 % (12.1-15.1) 11/19/24 13:21 Plt Count 235 10^3/cmm (157-399) 11/19/24 13:21 MPV 9.6 fL (7.4-10.4) 11/19/24 13:21 Neut % (Auto) 81.5 % 11/19/24 13:21 Lymph % (Auto) 8.8 % 11/19/24 13:21 [place] % (Auto) 6.3 % 11/19/24 13:21 Eos % (Auto) 2.1 % 11/19/24 13:21 Baso % (Auto) 0.9 % 11/19/24 13:21 Neut # (Auto) 5.44 10^3/uL (1.8-7.7) 11/19/24 13:21 Lymph # (Auto) 0.6 10^3/uL (0.8-4.8) L 11/19/24 13:21 [place] # (Auto) 0.4 10^3/uL (0.2-0.9) 11/19/24 13:21 Eos # (Auto) 0.1 10^3/uL (0.0-0.8) 11/19/24 13:21 Baso # (Auto) 0.1 10^3/uL (0.0-0.1) 11/19/24 13:21 Nucleated RBC % (auto) 0 % 11/19/24 13:21 Nucleated RBCs # 0.0 /100WBC 11/19/24 13:21 Sodium 138 mmol/L (136-145) 11/19/24 13:21 Potassium 4.0 mmol/L (3.5-5.1) 11/19/24 13:21 Chloride 100 mmol/L (98-107) 11/19/24 13:21 Carbon Dioxide 26 mmol/L (22-29) 11/19/24 13:21 Anion Gap 16.0 (5-19) 11/19/24 13:21 BUN 17 mg/dL (8-23) 11/19/24 13:21 Creatinine 0.9 mg/dL (0.7-1.2) 11/19/24 13:21 GFR Calculation 85.5 mL/min (90-130) L 11/19/24 13:21 Glucose 128 mg/dL (65-115) H 11/19/24 13:21 Calculated Osmolality 289 mOsm/kg (285-295) 11/19/24 13:21 Calcium 9.9 mg/dL (8.5-10.5) 11/19/24 13:21 Total Bilirubin 0.6 mg/dL (0.15-1.2) 11/19/24 13:21 AST 18 U/L (0-40) 11/19/24 13:21 ALT 12 U/L (0-41) 11/19/24 13:21 Alkaline Phosphatase 113 U/L (40-130) 11/19/24 13:21 Total Protein 7.6 g/dL (6.6-8.7) 11/19/24 13:21 Albumin 4.3 g/dL (3.5-5.2) 11/19/24 13:21 Globulin 3.3 g/dL (1.3-4.6) 11/19/24 13:21 Salicylates < 0.3 mg/dL (3-10) L 11/19/24 13:21 Urine Opiates Screen Negative ng/mL (Negative) 11/19/24 13:00 Acetaminophen < 5.0 ug/mL (10-30) L 11/19/24 13:21 Ur Barbiturates Screen Negative ng/mL (Negative) 11/19/24 13:00 Ur Phencyclidine Scrn Negative ng/mL (Negative) 11/19/24 13:00 Ur Amphetamines Screen Negative ng/mL (Negative) 11/19/24 13:00 U Benzodiazepines Scrn Negative ng/mL (Negative) 11/19/24 13:00 Urine Cocaine Screen Negative ng/mL (Negative) 11/19/24 13:00 U Marijuana (THC) Screen Positive ng/mL (Negative) H 11/19/24 13:00 All radiology interpretation(s) finalized by discharge Discharge Plan Discharge Patient Disposition: Home Clinical Impression: Alcohol use disorder Condition: Stable Prescriptions: No Action citalopram [Celexa] 20 mg tablet 20 mg PO DAILY Qty: 90 1RF aspirin 81 mg Tablet,Delayed Release (Dr/Ec) 81 mg PO DAILY trazodone 100 mg tablet 200 mg PO BEDTIME Discharge Orders: Discharge ED (Routine); Ordered 11/19/24 Ordered By: Donnie Herr Discharge Diet: Usual diet Discharge Activity: Resume usual activity Patient Instructions: Abuse of Alcohol (ED), Alcohol Dependence (ED), Alcohol Use Disorder (ED), Opioid Safety, Pain Management Activity Restrictions/Additional Instructions: Thank you for choosing [facility] for your healthcare needs today. It is very important that you follow up as instructed or that you return to the Emergency Department should you have concerns or if your condition changes or worsens in any way. Recommend that you abstain from alcohol Print Language: Hungarian Coding Level of Care Code ED Emergency Medcl Emt for Moi Doan
[2024-11-19 13:27] LABS: Basophils # 0.1 10^3/uL (0.0-0.1); Basophils % 0.9 %; Eosinophils # 0.1 10^3/uL (0.0-0.8); Eosinophils % 2.1 %; Hematocrit 42.4 % (37-53); Lymphocytes # 0.6 10^3/uL (0.8-4.8); Lymphocytes % 8.8 %; Mean Corpuscular HGB Conc 34.7 g/dL (30-55); Mean Corpuscular Hemoglobin 35.1 pg (27-33); Mean Corpuscular Volume 101.2 fl (82-101); Mean Platelet Volume 9.6 fL (7.4-10.4); Monocytes # 0.4 10^3/uL (0.2-0.9); Monocytes % 6.3 %; Neutrophils # 5.44 10^3/uL (1.8-7.7); Neutrophils % 81.5 %; Nucleated Red Blood Cells % 0 %; Platelet Count 235 10^3/cmm (157-399); Red Blood Count 4.19 10^6/uL (3.85-5.65); Red Cell Distribution Width 13.5 % (12.1-15.1); White Blood Count 6.68 10^3/uL (3.29-11.43)
[2024-11-19 13:35] LABS: Amphetamines Screen Urine Negative (Negative); Barbiturates Screen Urine Negative (Negative); Benzodiazepines Screen Urine Negative (Negative); Cocaine Screen Urine Negative (Negative); Opiate Screen Urine Negative (Negative); PCP Screen Urine Negative (Negative); THC Screen Urine Positive (Negative)
[2024-11-19 13:47] LABS: Alanine Aminotransferase 12 U/L (0-41); Albumin Level 4.3 g/dL (3.5-5.2); Alkaline Phosphatase 113 U/L (40-130); Aspartate Amino Transferase 18 U/L (0-40); Blood Urea Nitrogen 17 mg/dL (8-23); Calcium 9.9 mg/dL (8.5-10.5); Carbon Dioxide 26 mmol/L (22-29); Chloride 100 mmol/L (98-107); Creatinine Clr Calc Pharmacy 77.7915; Globulin 3.3 g/dL (1.3-4.6); Glomerular Filtration Rate 85.5 mL/min (90-130); Glucose 128 mg/dL (65-115); Osmolality Calculated 289 mOsm/kg (285-295); Sodium 138 mmol/L (136-145); Total Bilirubin 0.6 mg/dL (0.15-1.2); Total Protein 7.6 g/dL (6.6-8.7)
[2024-11-19 13:51] LABS: Acetaminophen < 5.0 ug/mL (10-30); Salicylate < 0.3 mg/dL (3-10)
== END 2024-11-19 15:06 | disposition home or self-care (01) ==
PROVIDERS: Emergency Provider Family Medicine
DX: F10.90 Alcohol use, unspecified, uncomplicated (principal); Z87.891 Personal history of nicotine dependence; Z79.82 Long term (current) use of aspirin; Z79.899 Other long term (current) drug therapy
CPT/HCPCS: 36415; 80053; 80306; 80307; 85025; 99283

== ENCOUNTER 2024-11-30 10:18 | Emergency (ER) | payer MEDICARE, SELFPAY ==
[2024-11-30 10:22] VITALS: BP 182/109; PULSE 67; RESP 18; TEMP 36.7; O2SAT 97; BMI 16.7
--- NOTE | 2024-11-30 10:26 | XR_ITS ---
WS: [id number] LEFT KNEE: 2 VIEW(S) TECHNIQUE: AP and lateral. HISTORY: PAIN COMPARISON: None available. No acute fractures or dislocation. Mild narrowing of patellofemoral and lateral joints. No osteochondral lesions. Moderate scattered vascular calcifications in the femoral and popliteal arteries. No joint effusion. XR/XR knee LT 1-2V [id number] IMPRESSION: 1. Mild narrowing of the lateral and patellofemoral compartments. 2. No fractures. 3. Scattered vascular calcifications in the femoral and popliteal arteries.
--- NOTE | 2024-11-30 10:51 | ED_ITS ---
HPI - Extremity Problem General: Chief complaint: Extremity Problem,Nontraumatic Stated complaint: Knee Pain x1 week Time Seen by Provider: 11/30/24 10:31 Source: patient and EMS Mode of arrival: EMS Limitations: no limitations History of Present Illness: 64-year-old male states been having left knee pain over the last week. He states he had done a a lot of walking and the left knee is just been more painful especially with walking. Denies any specific injuries denies any swelling or fevers. Associated symptoms: Deny chest pain, fever(s) or rash Related Data Home Medications ?Medication ?Instructions ?Recorded ?Confirmed aspirin 81 mg tablet,delayed 81 mg PO DAILY 02/20/21 0 11/19/24 release trazodone 100 mg tablet 200 mg PO BEDTIME 11/19/24 0 11/19/24 Previous Rx's ?Medication ?Instructions ?Recorded citalopram 20 mg tablet (Celexa) 20 mg PO DAILY #90 ta bs 12/18/23 naproxen 500 mg tablet (Naprosyn) 500 mg PO BID PRN pa in #20 tabs 11/30/24 Allergies Allergy/AdvReac Type Severity Reaction Status Date / Time No Known Allergies Allergy Verified 12/18/23 12:45 Review of Systems Const: Denies: fever(s), chills, body aches or change in appetite ENMT: Denies: throat pain or dental pain Card: Denies: chest pain Resp: Denies: dyspnea GI: Denies: abdominal pain, nausea, vomiting or diarrhea Musc: Reports: extremity pain; Denies: neck pain or back pain Skin/Breast: Denies: rash Neuro: Denies: headache(s) PFS ED PFSH: Medical History Psychiatric care Anemia Vitamin D deficiency Bilateral otitis externa Alcohol dependence, in remission Cocaine dependence, in remission Generalized anxiety disorder Depression, major, recurrent, in complete remission Surgical History Status post right inguinal hernia repair (02/21/21) History of colonoscopy 2020 History of spinal surgery History of shoulder surgery History of endovascular stent graft for abdominal aortic aneurysm (AAA) Family History Father , at age 80 Unknown family medical history Mother , at age 83 Dementia Denies family history of Diabetes CAD (coronary artery disease) Cancer Social History Alcohol intake: former Year of sobriety/quit date alcohol: 2009 Substance/Drug Use: never Marital status: Current occupational status: disabled Physical Exam Const: COMMON NORMALS: no acute distress, patient oriented x3 and healthy appearing HENMT: COMMON NORMALS: normocephalic and atraumatic HEAD & SCALP: normocephalic and atraumatic Neck/C-Spine: COMMON NORMALS: full ROM and supple Chest: COMMONS NORMALS: normal inspection of the chest Resp: COMMON NORMALS: normal respiratory effort Cardio: COMMON NORMALS: regular rate RATE: regular rate Extremity: NARRATIVE EXTREMITY EXAM: Some tenderness left knee is full range of motion no warmth to touch Neuro: COMMON NORMALS: patient oriented x3, moves all extremities and no focal motor deficits Psych: COMMON NORMALS: mental status grossly normal, Normal thought process present and cooperative THOUGHT PROCESS: Normal thought process present Skin: COMMON NORMALS: no rashes or lesions noted and no wounds GENERAL SKIN EXAM: no rashes or lesions noted Course Vital Signs: Vital signs: Vital Signs Temperature 98.1 F 11/30/24 10:22 Pulse Rate 67 11/30/24 10:22 Respiratory Rate 18 11/30/24 10:22 Blood Pressure 182/109 11/30/24 10:22 Pulse Oximetry 97 11/30/24 10:22 Oxygen Delivery Me thod Room Air 11/30/24 10:22 MDM - Extremity (Nontraumatic) Medical Decision Making Patient presents for left knee pain x-ray shows no acute fracture will place in an Lexa wrap crutches weight-bear as tolerated we will get him follow-up with orthopedics. Medical Records I reviewed the patient's medical records. XR interpretation done by ED provider, pending radiology final review ED provider radiology interpretation(s): X-ray left knee no acute abnormalities Discharge Plan Discharge Patient Disposition: Home Clinical Impression: Left knee pain Condition: Stable Prescriptions: New naproxen [Naprosyn] 500 mg tablet 500 mg PO BID PRN (Reason: pain) Qty: 20 0RF No Action citalopram [Celexa] 20 mg tablet 20 mg PO DAILY Qty: 90 1RF aspirin 81 mg Tablet,Delayed Release (Dr/Ec) 81 mg PO DAILY trazodone 100 mg tablet 200 mg PO BEDTIME Discharge Orders: Discharge ED (Routine); Ordered 11/30/24 Ordered By: Chaz Gutierrez Discharge Diet: Advance as tolerated Discharge Activity: Increase activity as tolerated Patient Instructions: Knee Pain (ED) Print Language: Icelandic Coding Level of Care Code ED Director Of Content And Programming for Moi Doan
[2024-11-30] MEDS: HYDROcodone-acetaminophen 5-325 mg Tablet 1 TAB PO (11:32)
--- NOTE | 2024-12-02 08:32 | DCPLANNER ---
messaged ortho for er f/u
== END 2024-11-30 11:32 | disposition home or self-care (01) ==
PROVIDERS: Emergency Provider Emergency Medicine
DX: M25.562 Pain in left knee (principal)
CPT/HCPCS: 73560; 99283; E0114; J9999

== ENCOUNTER → 2024-12-09 16:03 | Outpatient (BNVA) | payer MEDICARE, SELFPAY | PROVIDERS: Visit Provider Nurse Practitioner Family | DX: F33.42 Major depressive disorder, recurrent, in full remission (principal); G47.00 Insomnia, unspecified; E55.9 Vitamin D deficiency, unspecified; Z13.6 Encounter for screening for cardiovascular disorders; R10.84 Generalized abdominal pain; C61 Malignant neoplasm of prostate; D64.9 Anemia, unspecified; Z79.899 Other long term (current) drug therapy | CPT/HCPCS: 80053; 80061; 81003; 82306; 83036; 84443; 85025; G0103 ==

== ENCOUNTER → 2025-01-24 12:09 | Outpatient (BNVA) | payer MEDICARE, SELFPAY | PROVIDERS: PCP Nurse Practitioner Family; Visit Provider Nurse Practitioner Family | DX: M54.50 Low back pain, unspecified (principal); Z95.828 Presence of other vascular implants and grafts | CPT/HCPCS: 74018; 81003 ==

== ENCOUNTER 2025-02-09 12:03 | Outpatient (CLI) | payer MEDICARE, SELFPAY ==
--- NOTE | 2025-02-09 12:30 | CT_ITS ---
WS: [id number] CT ANGIOGRAPHY ABDOMEN AND PELVIS HISTORY: Z95.828 - Presence of other vascular implants and grafts TECHNIQUE: Noncontrast CT is first performed. CT angiogram is performed during IV injection. Reformation images reviewed. All CT scans at [facility] use at least one of these dose optimization techniques: automated exposure control; mA and/or kV adjustment per patient size (includes targeted exams where dose is matched to clinical indication); or iterative reconstruction. CONTRAST: Omnipaque 350; 100 mL IV. DLP: 660.79 mGy.cm COMPARISON: 04/29/2023 Motion artifact at the lung bases. Small hiatal hernia. Normal size heart. Abdominal aorta: Status post endovascular graft repair of the abdominal aorta with biiliac graft extensions. [place] aneurysm measures 4.7 x 4 point centimeters and has not significantly increased in size. By iliac endovascular graft extension is patent. No complications are evident. Curvilinear high de nsity in the excluded aneurysm sac has been present on multiple prior studies and does not represent an endovascular leak. There is no evidence for an endovascular leak on the post contrast study. [place] aneurysm remain stable in size. No periaortic collections. Normal size liver. Normal spleen with granulomata. As visualized the pancreas is unremarkable. Bilateral renal cysts. No renal obstruction. Celiac axis and SMA are patent. No GI tract obstruction. No adenopathy or ascites. Small umbilical hernia contains fat. Normally distended urinary bladder. No free fluid in the pelvis. 7 mm anterolisthesis of L5. Biconcave fractures at L1, L2 and L4. L1 compression fracture is new since 04/29/2023. Fracture line is still evident suggesting this is recent. There is slight retropulsion by 3 to 4 mm of the posterior superior endplate of L1. There is partial healing of the L1 fracture. Partially healed fractures involving the LEFT 10th, 11th and 12th ribs. Healed fracture involving the LEFT L2 transverse process. CT/CT angio abdomen pelvis [id number] IMPRESSION: 1. Endovascular graft repair of the abdominal aorta with biiliac artery extens ions is stable. There is no increase in size of the elem aneurysm. No endovas cular leak identified. 2. Recent L1 compression fracture by 50%. There is partial healing. Fracture l jorge are still evident. Retropulsion of L1 by 3 to 4 mm. 3. Additional partially healed fractures on the LEFT involving the 10th, 11th and 12th ribs. 4. Remote biconcave fractures L2 and L4. 5. Bilateral renal cysts.
[2025-02-09] MEDS: iohexol 350 mg/mL 500 mL Btl (per mL) IV (12:57)
== END 2025-02-09 12:04 | disposition home or self-care (01) ==
LOC: RAD 12:05
PROVIDERS: PCP Nurse Practitioner Family; Visit Provider Nurse Practitioner Family
DX: C61 Malignant neoplasm of prostate (principal); S32.010A Wedge compression fracture of first lumbar vertebra, initial encounter for closed fracture; X58.XXXA Exposure to other specified factors, initial encounter; N28.1 Cyst of kidney, acquired; Z95.828 Presence of other vascular implants and grafts
CPT/HCPCS: 74174

== ENCOUNTER → 2025-04-15 08:49 | Outpatient (BNVA) | payer MEDICARE, SELFPAY | PROVIDERS: PCP Nurse Practitioner Family; Visit Provider Nurse Practitioner Family | DX: M47.896 Other spondylosis, lumbar region (principal); M43.8X6 Other specified deforming dorsopathies, lumbar region; R93.7 Abnormal findings on diagnostic imaging of other parts of musculoskeletal system; M25.78 Osteophyte, vertebrae; G95.89 Other specified diseases of spinal cord; M85.88 Other specified disorders of bone density and structure, other site; Z95.818 Presence of other cardiac implants and grafts | CPT/HCPCS: 72114 ==

== ENCOUNTER → 2025-05-04 15:33 | Outpatient (BNVA) | payer MEDICARE, SELFPAY | PROVIDERS: PCP Nurse Practitioner Family; Visit Provider Nurse Practitioner Family | DX: M19.011 Primary osteoarthritis, right shoulder (principal); S22.41XA Multiple fractures of ribs, right side, initial encounter for closed fracture; X58.XXXA Exposure to other specified factors, initial encounter | CPT/HCPCS: 73030 ==